=== PATIENT | male | born 1975 | race Caucasian/White ===

== ENCOUNTER 2019-08-14 20:15 | Emergency (ER) | payer BC, OTHER ==
--- OUTSIDE RECORDS SUMMARY | 2019-08-14 20:22 | XMS REPORT | Continuity of Care Document ---
:1975 External Reference #:[id number] Author Name Chrystal Michelle DNP, RN, HORTICULTURAL SERVICES SUPERVISOR-BC (transmitted by agent of provider Karo Mccoy) Address [address], [address] [place] [address] Care Team Providers Name Role Phone Natasha Jamison MD - Family Care Team Information Quality Process Engineer [phone] Medicine Problems Active Problems Provider Date Strain of muscle(s) and tendon(s) of the rotator Jose Alfredo Hooks MD Onset: cuff of left shoulder, subsequent encounter Lateral epicondylitis Jose Alfredo Hooks MD Onset: 10/25/2017 Injury of shoulder region Jose Alfredo Hooks MD Onset: 10/25/2017 Social History Type Date Description Comments Sex Unknown Tobacco Use Start: Unknown End: Former Cigarette Smoker Smoked 2-3 ppd for Unknown 10 years Smoking Status Reviewed: 08/04/19 Former Cigarette Smoker Smoked 2-3 ppd for 10 years ETOH Use Denies alcohol use Tobacco Use Start: Unknown End: Patient is a former Unknown smoker Recreational Drug Use Denies Drug Use Exercise Type/Frequency Exercises sporadically Allergies, Adverse Reactions, Alerts Active Allergies Reaction Severity Comments Date Cortisone 12/06/2017 Inactive Allergies NKDA 10/25/2017 Medications Active Medications SIG Qnty Indications Ordering Provider Date Naproxen Sodium 1 or 2 tabs by Unknown 220mg mouth as needed Capsules Simvastatin Take 1 Tablet By Unknown 40mg Tablets Mouth Every Day Fish Oil Extra taking 1 cap by Unknown Strength mouth twice daily 1200mg Capsules Vitamin D3 1 by mouth every Unknown 5000Unit day Capsules Glucosamine 1 by mouth twice Unknown Chondroitin 1500 a day Complex 1500Com Capsules Biotin qd Unknown 2500mcg Claritin once daily Unknown 10mg Tablets Medications Administered in Office Medication SIG Qnty Indications Ordering Provider Date Triamcinolone (Kenalog) Jose Alfredo Hooks MD 10/25/2017 Injection Triamcinolone (Kenalog) Jose Alfredo Hooks MD 10/25/2017 Injection Immunizations Description No Information Available Vital Signs Date Vital Result Comment 08/04/2019 9:20am Height 73 inches 6'1" Weight 257.00 lb Heart Rate 54 /min BP Systolic Sitting 130 mmHg Lue large cuff BP Diastolic Sitting 84 mmHg Lue large cuff Respiratory Rate 12 /min O2 % BldC Oximetry 97 % BMI (Body Mass Index) 33.9 kg/m2 07/15/2018 9:17am Height 73 inches 6'1" Weight 261.00 lb Heart Rate 60 /min BP Systolic Sitting 122 mmHg BP Diastolic Sitting 86 mmHg Respiratory Rate 14 /min O2 % BldC Oximetry 97 % BMI (Body Mass Index) 34.4 kg/m2 Neck Circumference in inches 18.25 Results Description No Information Available Procedures Description No Information Available Medical Devices Description No Information Available Encounters Description No Information Available Assessments Date Code Description Provider 08/04/2019 G47.33 Obstructive sleep apnea (adult) Chrystal Michelle DNP, RN, HORTICULTURAL SERVICES SUPERVISOR-BC (pediatric) 08/04/2019 G47.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 Cleaning Wipe off mask daily (baby wipe-no scent, or warm water) Clean mask, tubing, filter, and water chamber weekly in mild no scent dish soap and water. Hang to dry. If you have any sleepiness while driving you MUST avoid operating a vehicle or machinery. If you have difficulty with your equipment, or need to replace your mask or hoses, please contact your homecare agency. A weight change of 20 pounds or more may have an effect onyour equipment ; if you are experiencing problems please call for an appointment. If you have any further questions, please call the [facility] at .G47.14 Hypersomnia due to medical conditionRecommendations:most likely related to need for more sleep Recommend you slowly expand your sleep time to 7 hours/night. Functional Status Description No Information Available Mental Status Description No Information Available Referrals Description No Information Available
[2019-08-14 20:34] VITALS: BP 144/85
--- NOTE | 2019-08-14 20:58 | UC ---
Lower Extremity/Ankle HPI - HPI Summary HPI Summary: 44-year-old male who was working approximately 10 feet above the ground on a ladder when the ladder started falling and as he was falling the ladder hit his left lateral lower leg. He has no other injury. Denies hitting his head, no neck pain. It was a day before he was leaving on vacation so he did not get seen. After about 2 weeks the swelling and bruising resolved. About the past week he developed swelling again to the distal lateral third of his left lower leg. And ambulatory without difficulty. - History of Current Complaint Chief Complaint: UCLowerExtremity Stated Complaint: LEG COMPLAINT Time Seen by Provider: 08/14/19 20:21 Hx Obtained From: Patient Onset/Duration: Sudden Onset, Lasting Weeks Severity Initially: Moderate Severity Currently: Mild Pain Intensity: 0 Aggravating Factor(s): Nothing Alleviating Factor(s): Nothing Able to Bear Weight: Yes - Allergies/Home Medications Allergies/Adverse Reactions: Allergies Allergy/AdvReac Type Severity Reaction Status Date / Time No Known Allergies Allergy Verified 08/14/19 20:29 PMH/Surg Hx/FS Hx/Imm Hx Previously Healthy: Yes - Surgical History Surgical History: None - Family History Known Family History: Positive: Non-Contributory - Social History Occupation: Employed Full-time Lives: With Family Alcohol Use: None Substance Use Type: None Smoking Status (MU): Never Smoked Tobacco Review of Systems All Other Systems Reviewed And Are Negative: Yes Skin: Positive: Bruising - Patient initially had a lot of bruising and swelling one month ago which resolved. Musculoskeletal: Positive: Edema - The patient developed left lower leg swelling and mild ankle swelling over the past week. He also has a lump on the lateral aspect distal third of his left lower leg., Other: Is Patient Immunocompromised?: No Physical Exam Triage Information Reviewed: Yes Appearance: Well-Appearing, No Pain Distress, Well-Nourished Vital Signs: Initial Vital Signs Temp 98.0 F 08/14/19 20:31 Pulse 53 08/14/19 20:31 Resp 18 08/14/19 20:31 BP 144/85 08/14/19 20:31 Pulse Ox 99 08/14/19 20:31 Vital Signs Reviewed: Yes Musculoskeletal: Positive: Strength Intact, ROM Intact, Edema @ - Patient has mild edema of the left lower leg and ankle. The ankle itself is nontender. Patient has a mild palpable lump to the left lateral distal leg which is mildly tender on palpation. No erythema or bruising present. Neurological: Positive: Alert, Muscle Tone Normal Psychological Exam: Normal Skin Exam: Normal Lower Extremity Course/Dx - Course Course Of Treatment: Left tib-fib x-ray: Negative Tib-fib as read by myself and Dr. May. At this point time I advised patient to elevate his leg as much as possible. A 4 inch Jose was applied. He is to apply warm moist heat to the area take Tylenol every 4 hours and Motrin every 8 hours as needed for pain. Definite follow-up to the orthopedist if no improvement by Sunday or Sunday. Patient is agreeable to this plan of action. - Differential Dx/Diagnosis Provider Diagnosis: Contusion of left lower leg Discharge ED - Sign-Out/Discharge Documenting (check all that apply): Patient Departure All imaging exams completed and their final reports reviewed: No - Discharge Plan Condition: Good Disposition: HOME Patient Education Materials: Contusion in Adults (ED) Referrals: Maddie Gordon MD [Medical Doctor] - Agustina Gutierrez MD [Primary Care Provider] - Additional Instructions: Elevate as much as possible, apply moist heat to the sore area. Wear the Jose bandage for comfort. Follow-up with the orthopedist if no improvement in 4 or 5 days or if worsening symptoms. - Billing Disposition and Condition Condition: GOOD Disposition: Home - Attestation Statements Provider Attestation: I was available for consult. This patient was seen by the JACKELYN. The patient was not presented to, seen by, or examined by me. -Alden
--- NOTE | 2019-08-15 08:48 | UC ---
- Progress Note Progress Note: Patient Name: RANDY CURRY Medical Record#: [id number] Ordering Physician: Lana Garcia NP Acct.#: [id number] : 1975 Age: 44 Sex: M Location: [facility] Exam Date: 08/14/192028 ADM Status: [facility] ER Order Information: TIBIA FIBULA LEFT Accession Number: [id number] CPT: 81939 INDICATION: Left lower leg injury. TECHNIQUE: 2 views of the left lower leg were obtained. FINDINGS: There is anterior and lateral soft tissue swelling. The bones are normal alignment. No fracture is seen. IMPRESSION: SOFT TISSUE SWELLING, NO FRACTURE IS SEEN. R0 Preliminary Imaging Read R0 <Electronically signed by Mor Lopez MD in OV> 08/15/19718 Dictated By: Mor Lopez MD Dictated Date/Time: 08/15/19717 Transcribed Date/Time: 08/15/19717 Copy to: CC:Lana Garcia NP; Heydi May MD; Agustina Gutierrez MD [facility] Imaging - [facility] [address] [address] ph ([phone]) ph ([phone]) ([phone]) This report is only to be considered final once signed by the Provider(s) as displayed in the "<Electronically Signed by >" field (s). Absence of a signature indicates the report is in a draft status and still needs to be finalized. In the event this document was created by someone other than the signing Provider, the individual initiating the document will be listed in the "Entered by:" or "Dictated by:" burton. 1 of 1 Course/Dx - Diagnoses Provider Diagnoses: Contusion of left lower leg Discharge ED - Sign-Out/Discharge Documenting (check all that apply): Post-Discharge Follow Up All imaging exams completed and their final reports reviewed: Yes - Discharge Plan Condition: Good Disposition: HOME Patient Education Materials: Contusion in Adults (ED) Referrals: Maddie Gordon MD [Medical Doctor] - Agustina Gutierrez MD [Primary Care Provider] - Additional Instructions: Elevate as much as possible, apply moist heat to the sore area. Wear the Jose bandage for comfort. Follow-up with the orthopedist if no improvement in 4 or 5 days or if worsening symptoms. - Billing Disposition and Condition Condition: GOOD Disposition: Home
== END 2019-08-14 21:00 | disposition home or self-care (01) ==
LOC: UCEAST 20:15
DX: S80.12XA Contusion of left lower leg, initial encounter (principal); W11.XXXA Fall on and from ladder, initial encounter; Y92.019 Unspecified place in single-family (private) house as the place of occurrence of the external cause
CPT/HCPCS: 99212; G0463